=== PATIENT | female | born 1985 ===

== ENCOUNTER 2018-02-13 16:46 | Emergency (ER) | payer SELFPAY ==
[2018-02-13 16:51] VITALS: BMI 26.1
[2018-02-13] MEDS ORDERED: Albuterol-Ipratrop 3 mg / 0.5 (3 ml) UD IH STA ×2 (16:51→16:54)
[2018-02-13 17:03] VITALS: TEMP 98.4
--- NOTE | 2018-02-13 17:03 | ED PDOC ---
Arrival/HPI - General Chief Complaint: Shortness Of Breath Time Seen by Provider: 02/13/18 16:47 Historian: Patient - History of Present Illness Narrative History of Present Illness (Text): 02/13/18 16:55 32yr old female with hx of asthma presents today with asthma exacerbation today. pt states for the past 2 days she has been needing her inhaler more frequently and she left her inhaler with her friend, so today she became extremely short of breath with wheezing. pt denies fever/chills. no abdominal pain. no vomiting/diarrhea.pt denies any uri symptoms. pt states she just moved in with her boyfriend who has 3 cats. pt states that she is allergic to cats. pt states symptoms worsened just prior to arrival. no urinary symptoms. no other complaints. Time/Duration: Prior to Arrival Symptom Onset: Sudden Past Medical History - Provider Review Nursing Documentation Reviewed: Yes - Travel History Have you recently traveled outside [place] w/in the past 3 mons?: No - Pulmonary Hx Asthma: Yes - Psychiatric Hx Substance Use: No - Anesthesia Hx Anesthesia Reactions: No Hx Malignant Hyperthermia: No Family/Social History - Physician Review Nursing Documentation Reviewed: Yes Family/Social History: Unknown Family HX Smoking Status: Never Smoked Hx Alcohol Use: No Hx Substance Use: No Allergies/Home Meds Allergies/Adverse Reactions: Allergies magnesium Allergy (Verified 02/13/18 16:50) RASH Review of Systems - Review of Systems Constitutional: absent: Fatigue, Fevers Respiratory: SOB, Wheezing. absent: Cough Cardiovascular: absent: Chest Pain, Palpitations Gastrointestinal: absent: Abdominal Pain, Constipation, Diarrhea, Nausea, Vomiting Genitourinary Female: absent: Dysuria, Frequency, Hematuria Musculoskeletal: absent: Arthralgias, Back Pain, Neck Pain Skin: absent: Rash, Pruritis Neurological: absent: Headache, Dizziness Psychiatric: absent: Anxiety, Depression Physical Exam Vital Signs Reviewed: Yes Vital Signs Temp Pulse Resp BP Pulse Ox 02/13/18 17:10 20 02/13/18 16:46 98.4 F 110 H 24 140/76 97 Temperature: Afebrile Blood Pressure: Normal Pulse: Tachycardic Respiratory Rate: Tachypneic Appearance: Positive for: Well-Appearing, Non-Toxic, Comfortable Pain Distress: Mild Mental Status: Positive for: Alert and Oriented X 3 - Systems Exam Head: Present: Atraumatic Mouth: Present: Moist Mucous Membranes Neck: Present: Normal Range of Motion Respiratory/Chest: Present: Good Air Exchange, Wheezes, Retracting, Tachypneic. No: Clear to Auscultation, Rhonchi Cardiovascular: Present: Tachycardic. No: Murmurs Abdomen: No: Tenderness Lower Extremity: No: Edema Neurological: Present: GCS=15, Speech Normal Skin: Present: Warm, Dry, Normal Color. No: Rashes Psychiatric: Present: Alert, Oriented x 3 Medical Decision Making ED Course and Treatment: 02/13/18 17:05 32yr old female presents today with asthma exacerbation. pt is alert and oriented; speaking in short sentences. diffuse wheezing noted; slight retracting noted. pt given duoneb and solu medrol 125mg IV pt reassessment; pt feeling much better. still with slight wheezing 02/13/18 17:36 pt reassessment; pt feeling much better; lungs cta bilaterally. HR improved. i advised patient to take prednisone daily 4 days use nebulizer 3 times daily as needed and follow up with primary care physician and paraeducator within the next 2 days. Advised immediate return if symptoms worsen persist or if new concerning symptoms develop I advised patient of risks versus benefits taking steroids. Advised patient of risk of avascular necrosis, diabetes, glaucoma with continued use of steriods. Patient verbalizes understanding of discharge instructions and need for immediate followup. all aspects of this case were discussed the attending of record. impression; asthma exacerbation prednisone daily x 4 days use nebulizer 3 times daily as needed increase fluids follow up with the Primary care physician within the next 2 days Follow up with the Supervisor [employer] within the next 2 days return IMMEDIATELY if symptoms worsen,persist or if new symptoms develop. Reassessment Condition: Re-examined, Improved - Medication Orders Current Medication Orders: Discontinued Medications Albuterol/Ipratropium (Duoneb 3 Mg/0.5 Mg (3 Ml) Ud) 3 ml IH STAT STA Stop: 02/13/18 16:52 Last Admin: 02/13/18 17:00 Dose: 3 ml Albuterol/Ipratropium (Duoneb 3 Mg/0.5 Mg (3 Ml) Ud) 3 ml IH STAT STA Stop: 02/13/18 16:55 Last Admin: 02/13/18 17:36 Dose: Not Given Non-Admin Reason: Patient Refused Methylprednisolone (Solu-Medrol) 125 mg IVP STAT STA Stop: 02/13/18 16:52 Last Admin: 02/13/18 17:35 Dose: 125 mg IVP Administration Document 02/13/18 17:35 JORDON (Rec: 02/13/18 17:35 JORDON [id number]) Charges for Administration # of IVP Administrations 1 Disposition/Present on Arrival - Present on Arrival Any Indicators Present on Arrival: No History of DVT/PE: No History of Uncontrolled Diabetes: No Urinary Catheter: No History of Decub. Ulcer: No History Surgical Site Infection Following: None - Disposition Have Diagnosis and Disposition been Completed?: Yes Diagnosis: Asthma exacerbation Disposition: HOME/ ROUTINE Disposition Time: 17:41 Patient Plan: Discharge Condition: GOOD Discharge Instructions (ExitCare): Asthma, Adult (DC) Additional Instructions: prednisone daily x 4 days use nebulizer 3 times daily as needed increase fluids follow up with the Primary care physician within the next 2 days Follow up with the Super[facility] [employer] within the next 2 days return IMMEDIATELY if symptoms worsen,persist or if new symptoms develop. Prescriptions: Albuterol HFA [Ventolin HFA 90 mcg/actuation (8 g)] 2 puff IH [id number] PRN #1 inhaler PRN Reason: Cough Albuterol 0.083% [Albuterol 0.083% Inhal Dominique (2.5 mg/3 ml) UD] 1 vial IH TID PRN #1 packet PRN Reason: Cough predniSONE [predniSONE Tab] 3 tab PO DAILY #12 tab Referrals: Tate Nesbitt MD [Primary Care Provider] - Follow up with primary Manuel Grider MD [Staff Provider] - Follow up with primary Forms: [employer] (Citizen Of [place]), WORK NOTE
[2018-02-13 18:14] VITALS: BP 130/71; PULSE 90; RESP 17; O2SAT 96
== END 2018-02-13 18:13 | disposition home or self-care (01) ==
LOC: MERGE 16:46 → ED 16:46
DX: J45.901 Unspecified asthma with (acute) exacerbation (principal)
CPT/HCPCS: 96374; 99283; J2930

== ENCOUNTER 2018-09-18 20:08 | Emergency (ER) | payer SELFPAY ==
[2018-09-18 20:15] VITALS: BMI 23.9
[2018-09-18] MEDS ORDERED: Albuterol-Ipratrop 3 mg / 0.5 (3 ml) UD ONE (20:15)
[2018-09-18 20:24] VITALS: TEMP 98.2
[2018-09-18] MEDS ORDERED: Albuterol-Ipratrop 3 mg / 0.5 (3 ml) UD IH STA (20:24)
[2018-09-18 20:41] LABS: BASO # 0.06 K/mm3 (0.0-2.0); BASO % 0.6 % (0.0-3.0); EOS # 0.7 (0.0-0.7); EOS % 6.3 % (1.5-5.0); HEMOGLOBIN 12.8 g/dL (12.0-16.0); LYMPH # 2.6 (1.2-3.4); LYMPH % 24.1 % (22.0-35.0); MEAN CELL VOLUME 97.5 fl (80.0-105.0); MEAN CORPUSCULAR HEMOGLOBIN 32.1 pg (25.0-35.0); MEAN CORPUSCULAR HGB CONC 32.9 g/dl (31.0-37.0); MEAN PLATELET VOLUME 9.9 fl (7.0-11.0); MONO # 0.6 (0.1-0.6); MONO % 5.4 % (1.0-6.0); RBC 3.99 10^6/uL (3.5-6.1); WHITE BLOOD COUNT 10.8 10^3/uL (4.5-11.0)
[2018-09-18] MEDS ORDERED: Sodium Chloride 0.9% 1,000 ML IV STA (20:44)
[2018-09-18 20:47] LABS: INR 0.95; PARTIAL THROMBOPLASTIN TIME 32.7 Seconds (26.9-38.3); PROTHROMBIN TIME 10.5 SECONDS (9.4-12.5)
[2018-09-18 21:14] LABS: ALB/GLOB RATIO 1.2 (1.1-1.8); ALBUMIN 4.2 g/dL (3.0-4.8); ALT/SGPT 16 U/L (7-56); AST/SGOT 24 U/L (14-36); BLOOD UREA NITROGEN 15 mg/dL (7-21); CALCIUM 9.4 mg/dL (8.4-10.5); GFR NON-AFRICAN AMERICAN > 60
[2018-09-18 21:25] LABS: TROPONIN I < 0.01 ng/mL
[2018-09-18 21:47] VITALS: RESP 16
--- NOTE | 2018-09-18 21:47 | ED PDOC ---
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 She has been staying at her grandmother's house the last 2 days, who owns multiple cats that patient is allergic to. She has been using her inhaler persistently without relief. States this feels like her typical asthma exacerbations. Denies fever, chills, chest pain, nausea, vomiting, abdominal pain, dizziness, headache, vision changes, neck pain/stiffness, palpitations, calf swelling or pain, numbness, weakness, paresthesias, rash, or any other associated symptoms. Past Medical History - Provider Review Nursing Documentation Reviewed: Yes - Infectious Disease Hx of Infectious Diseases: None - Tetanus Immunization Tetanus Immunization: Unknown - Past Medical History Past Medical History: Unable to Obtain - Cardiac Hx Cardiac Disorders: No - Pulmonary Hx Asthma: Yes - Neurological Hx Neurological Disorder: No - HEENT Hx HEENT Disorder: No - Renal Hx Renal Disorder: No - Endocrine/Metabolic Hx Endocrine Disorders: No - Hematological/Oncological Hx Blood Disorders: No - Integumentary Hx Dermatological Disorder: No - Musculoskeletal/Rheumatological Hx Musculoskeletal Disorders: No - Gastrointestinal Hx Gastrointestinal Disorders: No - Genitourinary/Gynecological Other/Comment: RECENT ELECTIVE [id number] AGO. - Psychiatric Hx Depression: Yes Hx Substance Use: No (unknown) - Past Surgical History Past Surgical History: Unable to Obtain - Anesthesia Hx Anesthesia: No Hx Anesthesia Reactions: No Hx Malignant Hyperthermia: No - Suicidal Assessment Feels Threatened In Home Enviroment: No Family/Social History - Physician Review Nursing Documentation Reviewed: Yes Family/Social History: No Known Family HX Smoking Status: Never Smoked Hx Alcohol Use: Yes (unknown) Frequency of alcohol use: Socially Hx Substance Use: No (unknown) Hx Substance Use Treatment: No Allergies/Home Meds Allergies/Adverse Reactions: Allergies magnesium Allergy (Verified 02/13/18 16:50) RASH Review of Systems - Review of Systems Constitutional: Normal. absent: Fevers Eyes: Normal. absent: Vision Changes ENT: Normal. absent: Sore Throat, Sinus Congestion Respiratory: SOB, Cough, Wheezing. absent: Sputum Cardiovascular: Normal. absent: Chest Pain, Palpitations, Syncope Gastrointestinal: Normal. absent: Abdominal Pain, Nausea, Vomiting Genitourinary Female: Normal. absent: Dysuria, Frequency Musculoskeletal: Normal. absent: Back Pain, Neck Pain Skin: Normal. absent: Rash Neurological: Normal. absent: Headache, Dizziness Endocrine: Normal Hemo/Lymphatic: Normal Psychiatric: Normal Physical Exam Vital Signs Reviewed: Yes Vital Signs Temp Pulse Resp BP Pulse Ox 09/18/18 20:14 98.2 F 114 H 18 142/93 H 99 Temperature: Afebrile Blood Pressure: Hypertensive Pulse: Tachycardic Respiratory Rate: Normal Appearance: Positive for: Well-Appearing, Non-Toxic, Uncomfortable Pain Distress: None Mental Status: Positive for: Alert and Oriented X 3 - Systems Exam Head: Present: Atraumatic, Normocephalic Pupils: Present: PERRL Extroacular Muscles: Present: EOMI Conjunctiva: Present: Normal Ears: Present: Normal, NORMAL TM, Normal Canal. No: Erythema Mouth: Present: Moist Mucous Membranes Neck: Present: Normal Range of Motion. No: Meningeal Signs Respiratory/Chest: Present: Wheezes (expiratory, diffuse, bilaterally), Decreased Breath Sounds (bilaterally). No: Respiratory Distress, Accessory Muscle Use, Rales, Retracting, Rhonchi, Tachypneic Cardiovascular: Present: Normal S1, S2, Peripheal Pulses Present, Tachycardic Abdomen: No: Tenderness, Distention, Peritoneal Signs, Rebound, Guarding Back: Present: Normal Inspection. No: CVA Tenderness Upper Extremity: Present: Normal Inspection, Normal ROM, NORMAL PULSES, Neurovascularly Intact, Capillary Refill < 2s. No: Cyanosis, Edema, Temperature Abnormalties Lower Extremity: Present: Normal ROM Neurological: Present: GCS=15, CN II-XII Intact, Speech Normal, Motor Func Grossly Intact, Normal Sensory Function, Gait Normal Skin: Present: Warm, Dry, Normal Color. No: Rashes Psychiatric: Present: Alert, Oriented x 3, Normal Insight, Normal Concentration, Normal Affect, Normal Mood Medical Decision Making ED Course and Treatment: 09/18/18 21:38 Initial Plan: * POC preg * CBC, CMP * Coags * Troponin * EKG * Portable CXR Bloodwork reviewed, unremarkable EKG shows sinus tach at 106; Normal intervals; No STEMI or other signs of acute ischemia CXR shows no active disease as read by me, significant for scoliosis 21:54 On re-evaluation, patient is feeling much better. Lung exam has improved. Better air exchange appreciated, still with wheezing bilaterally. 22:45 After xopenex, patient's lung exam reveals only scant intermittent wheezing. Pt states she is back to baseline and is asking for discharge home. O2 sat wnl. Denies SOB. Will discharge home on prednisone and recommend PMD followup. Diagnostic testing results and plan of care discussed with patient. Strict instructions given regarding prescription use, importance of followup, and signs/symptoms to return to ER including chest pain, SOB, or any other new/worsening symptoms. Pt verbalized understanding of discussion. Patient is A&Ox3, ambulating with steady gait, with vital signs stable for discharge. - Lab Interpretations Lab Results: PT 10.5 SECONDS (9.4-12.5) 09/18/18 20:15 INR 0.95 09/18/18 20:15 APTT 32.7 Seconds (26.9-38.3) 09/18/18 20:15 Troponin I < 0.01 ng/mL 09/18/18 20:15 Total Bilirubin 0.2 mg/dL (0.2-1.3) 09/18/18 20:15 AST 24 U/L (14-36) 09/18/18 20:15 ALT 16 U/L (7-56) 09/18/18 20:15 Alkaline Phosphatase 61 U/L (38-126) 09/18/18 20:15 Total Protein 7.6 g/dL (5.8-8.3) 09/18/18 20:15 Albumin 4.2 g/dL (3.0-4.8) 09/18/18 20:15 Globulin 3.4 gm/dL 09/18/18 20:15 Albumin/Globulin Ratio 1.2 (1.1-1.8) 09/18/18 20:15 09/18/18 20:15 09/18/18 20:15 Lab Results 09/18/18 20:15: Sodium 143, Potassium 4.1, Chloride 109 H, Carbon Dioxide 25, Anion Gap 13, BUN 15, Creatinine 0.9, Est GFR ( Amer) > 60, Est GFR (Non- Af Amer) > 60, Random Glucose 83, Calcium 9.4, Magnesium 2.1, Total Bilirubin 0.2, AST 24, ALT 16, Alkaline Phosphatase 61, Troponin I < 0.01, Total Protein 7.6, Albumin 4.2, Globulin 3.4, Albumin/Globulin Ratio 1.2 09/18/18 20:15: PT 10.5, INR 0.95, APTT 32.7 09/18/18 20:15: WBC 10.8, RBC 3.99, Hgb 12.8, Hct 38.9, MCV 97.5, MCH 32.1, MCHC 32.9, RDW 13.0, Plt Count 400, MPV 9.9, Neut % (Auto) 63.6, Lymph % (Auto) 24.1, Hughes % (Auto) 5.4, Eos % (Auto) 6.3 H, Baso % (Auto) 0.6, Lymph # (Auto) 2.6, Hughes # (Auto) 0.6, Eos # (Auto) 0.7, Baso # (Auto) 0.06, Absolute Neuts (auto) 6.90 H I have reviewed the lab results: Yes Interpretation: All labs normal - RAD Interpretation Narrative RAD Interpretations (Text): 09/18/18 21:56 CXR: Scoliosis, no active pulmonary disease Radiology Orders: 09/18/18 20:25 CHEST PORTABLE [RAD] Stat Vessel Engineer: ED Physician - EKG Interpretation EKG Interpretation (Text): 09/18/18 21:56 Sinus tachycardia at 106; Normal intervals; No STEMI or other signs of ischemia Interpreted by ED Physician: Yes Type: 12 lead EKG - Medication Orders Current Medication Orders: Sodium Chloride (Sodium Chloride 0.9%) 1,000 mls @ 999 mls/hr IV .Q1H1M STA Stop: 09/18/18 21:44 Last Admin: 09/18/18 21:07 Dose: 999 mls/hr eMAR Start Stop Document 09/18/18 21:07 NEVAEH (Rec: 09/18/18 21:07 NEVAEH [id number]) Intravenous Solution Start Date 09/18/18 Start Time 21:07 Discontinued Medications Albuterol/Ipratropium (Duoneb 3 Mg/0.5 Mg (3 Ml) Ud) 3 ml IH STAT STA Stop: 09/18/18 20:25 Last Admin: 09/18/18 20:29 Dose: 3 ml Methylprednisolone (Solu-Medrol) 125 mg IVP STAT STA Stop: 09/18/18 20:25 Last Admin: 09/18/18 21:07 Dose: 125 mg IVP Administration Document 09/18/18 21:07 MA (Rec: 09/18/18 21:08 MA [id number]) Charges for Administration # of IVP Administrations 1 Disposition/Present on Arrival - Present on Arrival Any Indicators Present on Arrival: No History of DVT/PE: No History of Uncontrolled Diabetes: No Urinary Catheter: No History of Decub. Ulcer: No History Surgical Site Infection Following: None - Disposition Have Diagnosis and Disposition been Completed?: Yes Diagnosis: Asthma exacerbation Disposition: HOME/ ROUTINE Disposition Time: 22:55 Patient Plan: Discharge Condition: IMPROVED Discharge Instructions (ExitCare): Asthma, Adult (DC), Avoiding Asthma Triggers Additional Instructions: Prednisone 2 tabs daily for 4 days Inhaler every 6 hours as needed Followup with primary doctor within 2 days Return to ER with any new/worsening symptoms Prescriptions: Albuterol Sulfate [Ventolin Hfa] 2 puff IH Q6 #1 pump predniSONE [predniSONE Tab] 40 mg PO DAILY #8 tab Referrals: Sheri Dill MD [Medical Doctor] - [place] up with primary [facility] [place] - Follow up with primary Forms: [employer] (F[place]ish), WORK NOTE
[2018-09-18] MEDS ORDERED: Levalbuterol 1.25 MG/3 ML Inhal Soln UD IH STA ×2 (21:52→21:53)
[2018-09-18 22:42] VITALS: BP 126/81; PULSE 117; O2SAT 94
--- NOTE | 2018-09-19 10:53 | RAD ---
Date of service: 09/18/2018 HISTORY: SOB COMPARISON: 09/30/2012 TECHNIQUE: 1 view obtained. FINDINGS: LUNGS: No active pulmonary disease. PLEURA: No significant pleural effusion identified, no pneumothorax apparent. CARDIOVASCULAR: No aortic atherosclerotic calcification present. Normal cardiac size. No pulmonary vascular congestion. OSSEOUS STRUCTURES: Mild scoliosis convex to the right VISUALIZED UPPER ABDOMEN: Normal. OTHER FINDINGS: None. IMPRESSION: No active disease.
--- NOTE | 2018-09-19 17:38 | CARD ---
APPROVED REPORT Date of service: 09/18/2018 EKG Measurement Heart [id number] <Conclusion> Sinus tachycardia Otherwise normal ECG
== END 2018-09-18 22:57 | disposition home or self-care (01) ==
LOC: ED 20:08
DX: J45.901 Unspecified asthma with (acute) exacerbation (principal)
CPT/HCPCS: 71045; 80053; 81025; 83735; 84484; 85025; 85610; 85730; 93005; 96374; 99284; J2930; J7030

== ENCOUNTER 2018-09-28 05:01 | Observation (INO) | payer MEDICAID, OTHER ==
--- NOTE | 2018-09-28 05:35 | ED PDOC ---
Arrival/HPI - General Chief Complaint: Substance Abuse Time Seen by Provider: 09/28/18 05:14 Historian: Patient - History of Present Illness Narrative History of Present Illness (Text): 09/28/18 05:31 33 year old female, whose medical history includes asthma, presents to the emergency department for substance abuse. Patient states she was at a club at 23:00 yesterday, when she took what she thought was ecstasy. Patient states she doesn't believe it was, and she feels like she can't breath well. Patient informs that she feels her heart beating rapidly. Patient also informs of hot flashes. Patient informs she does not know the person who sold her the drug. Patient denies any fevers, chills, headache, dizziness, chest pain, cough, abdominal pain, nausea, vomiting, diarrhea, back pain, neck pain, or any other complaint. Time/Duration: 4-6 hours Symptom Course: Unchanged Activities at Onset: Significant Past Medical History - Provider Review Nursing Documentation Reviewed: Yes - Infectious Disease Hx of Infectious Diseases: None - Tetanus Immunization Tetanus Immunization: Unknown - Past Medical History Past Medical History: Unable to Obtain - Cardiac Hx Cardiac Disorders: No - Pulmonary Hx Asthma: Yes - Neurological Hx Neurological Disorder: No - HEENT Hx HEENT Disorder: No - Renal Hx Renal Disorder: No - Endocrine/Metabolic Hx Endocrine Disorders: No - Hematological/Oncological Hx Blood Disorders: No - Integumentary Hx Dermatological Disorder: No - Musculoskeletal/Rheumatological Hx Musculoskeletal Disorders: No - Gastrointestinal Hx Gastrointestinal Disorders: No - Genitourinary/Gynecological Other/Comment: RECENT ELECTIVE [id number] AGO. - Psychiatric Hx Depression: Yes Hx Substance Use: No (unknown) - Past Surgical History Past Surgical History: Unable to Obtain - Anesthesia Hx Anesthesia: No Hx Anesthesia Reactions: No Hx Malignant Hyperthermia: No - Suicidal Assessment Feels Threatened In Home Enviroment: No Family/Social History - Physician Review Nursing Documentation Reviewed: Yes Family/Social History: No Known Family HX Smoking Status: Never Smoked Hx Alcohol Use: Yes (unknown) Hx Substance Use: No (unknown) Hx Substance Use Treatment: No Allergies/Home Meds Allergies/Adverse Reactions: Allergies magnesium Allergy (Verified 09/28/18 05:08) RASH Review of Systems - Physician Review All systems were reviewed & negative as marked: Yes - Review of Systems Constitutional: absent: Fevers, Night Sweats Respiratory: SOB. absent: Cough Cardiovascular: Palpitations. absent: Chest Pain Gastrointestinal: absent: Abdominal Pain, Diarrhea, Nausea, Vomiting Musculoskeletal: absent: Back Pain, Neck Pain Neurological: absent: Headache, Dizziness Endocrine: Diaphoresis Physical Exam - Physical Exam Narrative Physical Exam (Text): 09/28/18 05:37 Gen: VS reviewed, alert, well developed, well nourished, nontoxic, mild distress, agitated. ENT: normal pharynx. Eye: EOMI, PERRL and dilated. Neck: no JVD, supple, no adenopathy. CV: rapid rate, regular rhythm, no rubs, no murmur, no gallops, S1, S2, pulses equal and strong. Pulm: no distress, clear to auscultation, no wheeze, no rhonchi, breath sounds equal, no rales. Abd: soft, nontender, no guarding, no rebound, no rigidity, normal bowel sounds. Ext: no edema. Skin: good color, no rash, no cyanosis. Psych: responds appropriately to questions, normal affect. Neuro: oriented x 3, CN2-12 intact grossly, motor intact, sensation intact. 09/28/18 05:50 Vital Signs Reviewed: Yes Vital Signs Temp Pulse Resp BP Pulse Ox 09/28/18 05:14 98.2 F 141 H 18 113/59 L 98 Temperature: Afebrile Blood Pressure: Normal Pulse: Tachycardic Respiratory Rate: Normal Appearance: Positive for: Well-Appearing, Non-Toxic, Comfortable Pain Distress: None Mental Status: Positive for: Alert and Oriented X 3 Medical Decision Making ED Course and Treatment: 09/28/18 05:48 Impression: 33 year old female presents for evaluation s/p drug use. Plan: -- EKG -- CMP, Drug screen, alcohol -- CBC -- Chest X-ray -- POC -- Reassess and disposition Prior Visits: Notes and results from previous visits were reviewed. Progress Notes: 09/28/18 05:48 09/28/18 07:[address] rdz - RAD Interpretation Narrative RAD Interpretations (Text): 09/28/18 06:34 cxr my read: no focal infiltrate, no ptx, no wide mediastinum Quality Engineer Medical Device: ED Physician - EKG Interpretation EKG Interpretation (Text): 09/28/18 06:33 ekg my read: sinus tachycardia at 133 bpm, nml qrs, nml axis, artifact, no acute sttw abn Interpreted by ED Physician: Yes - Scribe Statement The provider has reviewed the documentation as recorded by the Scribe Bayron Carr Provider Scribe Attestation: All medical record entries made by the Scribe were at my direction and personally dictated by me. I have reviewed the chart and agree that the record accurately reflects my personal performance of the history, physical exam, medical decision making, and the department course for this patient. I have also personally directed, reviewed, and agree with the discharge instructions and disposition. Disposition/Present on Arrival - Present on Arrival History of DVT/PE: No History of Uncontrolled Diabetes: No Urinary Catheter: No History of Decub. Ulcer: No History Surgical Site Infection Following: None - Disposition Forms: [employer] (Lao)
[2018-09-28] MEDS ORDERED: Sodium Chloride 0.9% 1,000 ML IV STA (05:43)
[2018-09-28 06:04] LABS: BASO # 0.08 K/mm3 (0.0-2.0); BASO % 0.4 % (0.0-3.0); EOS # 1.2 (0.0-0.7); EOS % 6.4 % (1.5-5.0); HEMOGLOBIN 13.9 g/dL (12.0-16.0); LYMPH # 2.7 (1.2-3.4); MEAN CELL VOLUME 95.3 fl (80.0-105.0); MEAN CORPUSCULAR HEMOGLOBIN 32.5 pg (25.0-35.0); MEAN CORPUSCULAR HGB CONC 34.1 g/dl (31.0-37.0); MEAN PLATELET VOLUME 9.7 fl (7.0-11.0); MONO # 1.6 (0.1-0.6); MONO % 8.5 % (1.0-6.0); RBC 4.28 10^6/uL (3.5-6.1); RED CELL DISTRIBUTION WIDTH 13.2 % (11.5-14.5); WHITE BLOOD COUNT 18.3 10^3/uL (4.5-11.0)
[2018-09-28 06:22] LABS: PHENCYCLIDINE, UR NEGATIVE (NEGATIVE)
[2018-09-28 07:08] LABS: ALB/GLOB RATIO 1.3 (1.1-1.8); ALBUMIN 4.2 g/dL (3.0-4.8); ALT/SGPT 10 U/L (7-56); AST/SGOT 22 U/L (14-36); BARBITURATES, UR NEGATIVE (NEGATIVE); BENZODIAZEPINES, UR NEGATIVE (NEGATIVE); BLOOD UREA NITROGEN 8 mg/dL (7-21); CALCIUM 9.5 mg/dL (8.4-10.5); GFR NON-AFRICAN AMERICAN > 60; OPIATES, UR NEGATIVE (NEGATIVE)
--- NOTE | 2018-09-28 07:51 | ED PDOC ---
Physical Exam Vital Signs Reviewed: Yes Vital Signs Temp Pulse Resp BP Pulse Ox 09/28/18 05:14 98.2 F 141 H 18 113/59 L 98 Temperature: Afebrile Blood Pressure: Normal Pulse: Tachycardic Respiratory Rate: Normal Appearance: Positive for: Well-Appearing, Non-Toxic, Comfortable Pain Distress: None Mental Status: Positive for: Alert and Oriented X 3 Medical Decision Making ED Course and Treatment: 09/28/18 07:51 Patient signed out to me by Dr. Moore. Patient pending Labs / Reassessment / Final Disposition 09/28/18 13:43 upon reasses, pt with oorsneing wheezing. neb steroids inaitaed. observed without improved. accpeted hospitalist. - Lab Interpretations Lab Results: Total Bilirubin 0.8 mg/dL (0.2-1.3) 09/28/18 05:57 AST 22 U/L (14-36) 09/28/18 05:57 ALT 10 U/L (7-56) 09/28/18 05:57 Alkaline Phosphatase 57 U/L (38-126) 09/28/18 05:57 Total Protein 7.6 g/dL (5.8-8.3) 09/28/18 05:57 Albumin 4.2 g/dL (3.0-4.8) 09/28/18 05:57 Globulin 3.4 gm/dL 09/28/18 05:57 Albumin/Globulin Ratio 1.3 (1.1-1.8) 09/28/18 05:57 - RAD Interpretation Narrative RAD Interpretations (Text): 09/28/18 08:30 Chest X-Ray shows: IMPRESSION: No active disease. Radiology Orders: 09/28/18 05:42 CHEST PORTABLE [RAD] Stat Set Up Mechanic: Radiologist - Medication Orders Current Medication Orders: Discontinued Medications Sodium Chloride (Sodium Chloride 0.9%) 1,000 mls @ 999 mls/hr IV .Q1H1M STA Stop: 09/28/18 06:43 Last Admin: 09/28/18 05:57 Dose: 999 mls/hr eMAR Start Stop Document 09/28/18 05:57 IT (Rec: 09/28/18 05:57 IT [id number]) Intravenous Solution Start Date 09/28/18 Start Time 05:57 Lorazepam (Ativan) 1 mg IVP ONCE ONE; Protocol Stop: 09/28/18 06:30 Last Admin: 09/28/18 06:42 Dose: 1 mg IVP Administration Document 09/28/18 06:42 IT (Rec: 09/28/18 06:42 IT [id number]) Charges for Administration # of IVP Administrations 1 Disposition/Present on Arrival - Present on Arrival Any Indicators Present on Arrival: No History of DVT/PE: No History of Uncontrolled Diabetes: No Urinary Catheter: No History of Decub. Ulcer: No History Surgical Site Infection Following: None - Disposition Have Diagnosis and Disposition been Completed?: Yes Diagnosis: Asthma, Overdose Disposition: HOSPITALIZED Disposition Time: 12:00 Condition: FAIR
--- NOTE | 2018-09-28 08:34 | RAD ---
Date of service: 09/28/2018 HISTORY: chest pain COMPARISON: 09/18/2018 TECHNIQUE: 1 view obtained. FINDINGS: LUNGS: No active pulmonary disease. PLEURA: No significant pleural effusion identified, no pneumothorax apparent. CARDIOVASCULAR: No aortic atherosclerotic calcification present. Normal cardiac size. No pulmonary vascular congestion. OSSEOUS STRUCTURES: No significant abnormalities. VISUALIZED UPPER ABDOMEN: Normal. OTHER FINDINGS: None. IMPRESSION: No active disease.
[2018-09-28] MEDS ORDERED: Albuterol-Ipratrop 3 mg / 0.5 (3 ml) UD IH STA ×2 (09:30)
--- NOTE | 2018-09-28 10:38 | CARD ---
APPROVED REPORT Date of service: 09/28/2018 EKG Measurement Heart [id number] <Conclusion> Sinus tachycardia Baseline artifact Rightward axis Borderline ECG
[2018-09-28] MEDS ORDERED: Levalbuterol 0.63 MG/3 ML Inhal Soln UD IH PRN (12:12)
[2018-09-28] MEDS ORDERED: Sodium Chloride 0.9% 1,000 ML IV SCH (12:15)
--- NOTE | 2018-09-28 12:20 | CP.PCM.HP ---
<MarcellYfn - Last Filed: 09/28/18 18:41> History of Present Illness - History of Present Illness History of Present Illness: Yfn Faith, PGY1 Medicine H&P Note for Dr. Vasquez: CC: SOB, palpitations, and Anxiety Pt is a 33 yo F with pmhx of Asthma requiring 2 intubations (last over 10 years ago) and anxiety who presents to the [facility] ER for SOB, palpitations and anxiety. Pt states that last night she was at a club celebrating her friends birthday when she took a pill of what she thought was ecstasy. Pt states that after taking the pill she was fine and had no adverse events. She states that though this AM she noticed that she was having some difficulty breathing. She states that she then began to become anxious due to her SOB and then decided to call the ambulance to take her to the ED. She states that in the ED she received a duoneb treatment which did not help alleviate the SOB. She states that at the time of exam she is feeling better and states that her SOB and anxiety have improved. Pt at this time also denies any fevers, chills, headache, lightheadedness, dizziness, weakness, chest pain, palpitations, abd pain, n/v, c/d or dysuria. Pmhx: Asthma requiring 2 intubations (last over 10 years ago) and anxiety Pshx: Denies Meds: Albuterol All: Mag - hives Soc: Denies any tobacco hx, admits to social drinking (Wine on weekends), denies any illicit drug use Fam Hx; Dad: Leukemia, Mom: CAD Present on Admission - Present on Admission Any Indicators Present on Admission: No Review of Systems - Review of Systems Review of Systems: 12 point ROS reviewed and negative except for noted in HPI above. Past Patient History - Infectious Disease Hx of Infectious Diseases: None - Tetanus Immunizations Tetanus Immunization: Unknown - Past Social History Smoking Status: Never Smoked - CARDIAC Hx Cardiac Disorders: No - PULMONARY Hx Asthma: Yes - NEUROLOGICAL Hx Neurological Disorder: No - HEENT Hx HEENT Problems: No - RENAL Hx Chronic Kidney Disease: No - ENDOCRINE/METABOLIC Hx Endocrine Disorders: No - HEMATOLOGICAL/ONCOLOGICAL Hx Blood Disorders: No - INTEGUMENTARY Hx Dermatological Problems: No - MUSCULOSKELETAL/RHEUMATOLOGICAL Hx Musculoskeletal Disorders: No - GASTROINTESTINAL Hx Gastrointestinal Disorders: No - GENITOURINARY/GYNECOLOGICAL Other/Comment: RECENT ELECTIVE [id number] AGO. - PSYCHIATRIC Hx Depression: Yes Hx Substance Use: No (unknown) - ANESTHESIA Hx Anesthesia: No Hx Anesthesia Reactions: No Hx Malignant Hyperthermia: No Meds Allergies/Adverse Reactions: Allergies Allergy/AdvReac Type Severity Reaction Status Date / Time magnesium Allergy RASH Verified 09/28/18 12:44 Physical Exam - Constitutional Appears: Well, Non-toxic, No Acute Distress - Head Exam Head Exam: ATRAUMATIC, NORMAL INSPECTION, NORMOCEPHALIC - Eye Exam Eye Exam: EOMI, Normal appearance, PERRL - Respiratory Exam Respiratory Exam: Clear to Auscultation Bilateral, NORMAL BREATHING PATTERN. absent: Accessory Muscle Use, Decreased Breath Sounds, Rales, Rhonchi, Wheezes, Respiratory Distress, Stridor - Cardiovascular Exam Cardiovascular Exam: Tachycardia, +S1, +S2. absent: Gallop, Rubs - GI/Abdominal Exam GI & Abdominal Exam: Normal Bowel Sounds, Soft. absent: Distended, Firm, Guardi ng, Rigid, Tenderness - Extremities Exam Extremities exam: Positive for: normal capillary refill, normal inspection, pedal pulses present. Negative for: pedal edema, tenderness - Back Exam Back exam: NORMAL INSPECTION. absent: CVA tenderness (L), CVA tenderness (R) - Neurological Exam Neurological exam: Alert, Oriented x3 - Psychiatric Exam Psychiatric exam: Normal Affect, Normal Mood - Skin Skin Exam: Dry, Normal Color, Warm Results - Vital Signs Recent Vital Signs: Last Vital Signs Temp 98.2 F 09/28/18 05:14 Pulse 120 H 09/28/18 11:41 Resp 20 09/28/18 11:41 BP 129/73 09/28/18 11:41 Pulse Ox 98 09/28/18 11:41 - Labs Result Diagrams: 09/28/18 15:45 09/28/18 05:57 Labs: Laboratory Results - last 24 hr 09/28/18 09/28/18 09/28/18 05:57 05:57 05:57 WBC 18.3 H D RBC 4.28 Hgb 13.9 Hct 40.8 MCV 95.3 MCH 32.5 MCHC 34.1 RDW 13.2 Plt Count 456 H MPV 9.7 Neut % (Auto) 69.7 H Lymph % (Auto) 15.0 L [place] % (Auto) 8.5 H Eos % (Auto) 6.4 H Baso % (Auto) 0.4 Lymph # (Auto) 2.7 [place] # (Auto) 1.6 H Eos # (Auto) 1.2 H Baso # (Auto) 0.08 Absolute Neuts (auto) 12.77 H Sodium 138 Potassium 3.7 Chloride 101 Carbon Dioxide 25 Anion Gap 16 BUN 8 Creatinine 0.7 Est GFR ( Amer) > 60 Est GFR (Non-Af Amer) > 60 Random Glucose 96 Calcium 9.5 Total Bilirubin 0.8 AST 22 ALT 10 Alkaline Phosphatase 57 Total Protein 7.6 Albumin 4.2 Globulin 3.4 Albumin/Globulin Ratio 1.3 Urine Opiates Screen Negative Urine Methadone Screen Negative Ur Barbiturates Screen Negative Ur Phencyclidine Scrn Negative Ur Amphetamines Screen Positive H U Benzodiazepines Scrn Negative U Oth Cocaine Metabols Negative U Cannabinoids Screen Negative Alcohol, Quantitative 09/28/18 05:57 WBC RBC Hgb Hct MCV MCH MCHC RDW Plt Count MPV Neut % (Auto) Lymph % (Auto) [place] % (Auto) Eos % (Auto) Baso % (Auto) Lymph # (Auto) [place] # (Auto) Eos # (Auto) Baso # (Auto) Absolute Neuts (auto) Sodium Potassium Chloride Carbon Dioxide Anion Gap BUN Creatinine Est GFR ( Amer) Est GFR (Non-Af Amer) Random Glucose Calcium Total Bilirubin AST ALT Alkaline Phosphatase Total Protein Albumin Globulin Albumin/Globulin Ratio Urine Opiates Screen Urine Methadone Screen Ur Barbiturates Screen Ur Phencyclidine Scrn Ur Amphetamines Screen U Benzodiazepines Scrn U Oth Cocaine Metabols U Cannabinoids Screen Alcohol, Quantitative < 10 Assessment & Plan - Assessment and Plan (Free Text) Assessment: Pt is a 33 yo F with pmhx of Asthma requiring 2 intubations (last over 10 years ago) and anxiety who presents to the [facility] ER for SOB, palpitations and anxiety. Plan: Asthma exacerbation vs anxiety vs drug effects: - CXR: No active disease - Pt was given duoneb treatment in ED, no wheezing noted on exam - Pt also given ativan in ED and is noted to be feeling better - IVF - NS @ 100/hr - Xopenex q4 PRN - Utox: + for amphetamines - Pt informed to refrain from taking any recreational drugs - Cont to monitor Palpitations likely 2/2 drug effect vs anxiety - Will continue to monitor - Electrolytes wnl PPx: SCDs Case seen and discussed with Dr. Christina Faith, PGY-1 <Yinka Vasquez - Last Filed: 09/29/18 08:27> Results - Vital Signs Recent Vital Signs: Last Vital Signs Temp 98.4 F 09/28/18 18:00 Pulse 126 H 09/28/18 18:00 Resp 22 09/28/18 18:00 BP 120/79 09/28/18 18:00 Pulse Ox 96 09/28/18 12:35 - Labs Result Diagrams: 09/28/18 15:45 09/28/18 05:57 Labs: Laboratory Results - last 24 hr 09/28/18 15:45 WBC 7.7 D RBC 3.91 Hgb 12.6 Hct 37.4 MCV 95.7 MCH 32.2 MCHC 33.7 RDW 13.5 Plt Count 358 MPV 9.5 Neut % (Auto) 94.0 H Lymph % (Auto) 5.1 L [place] % (Auto) 0.5 L Eos % (Auto) 0.3 L Baso % (Auto) 0.1 Lymph # (Auto) 0.4 L [place] # (Auto) 0.0 L Eos # (Auto) 0.0 Baso # (Auto) 0.01 Absolute Neuts (auto) 7.20 H Neutrophils % (Manual) 93 H Lymphocytes % (Manual) 5 L Monocytes % (Manual) 2 Toxic Granulation 2+ Platelet Evaluation Normal Hypochromasia 1+ Rouleaux 2+ Attending/Attestation - Attestation I have personally seen and examined this patient.: Yes I have fully participated in the care of the patient.: Yes I have reviewed all pertinent clinical information: Yes Notes (Text): Patient seen and examined with the residents, agree with above Noted to have done MDMA the night prior to her admission which resulted in asthma exacerbation approximately 5 hours after taking the "pill" Patient was administered IV Solumedrol in the ER. At the time of hospitalist evaluation, patient was in no respiratory distress. No wheezing noted on pulmonary exam. AOx3. Patient requesting to be discharged. Educated on cessation of any recreational / illicit drug use.
[2018-09-28 12:38] VITALS: O2SAT 96
[2018-09-28 15:26] VITALS: BMI 25.7
[2018-09-28] MEDS ORDERED: Pneumococcal 23-Valent Vaccine IM ONE (15:26)
[2018-09-28] MEDS ORDERED: Influenza Vaccine 60 mcg/0.5 mL SYR (4YR UP) IM ONE (15:26)
[2018-09-28 15:49] LABS: BASO # 0.01 K/mm3 (0.0-2.0); BASO % 0.1 % (0.0-3.0); EOS % 0.3 % (1.5-5.0); HEMOGLOBIN 12.6 g/dL (12.0-16.0); LYMPH # 0.4 (1.2-3.4); LYMPH % 5.1 % (22.0-35.0); MEAN CELL VOLUME 95.7 fl (80.0-105.0); MEAN CORPUSCULAR HEMOGLOBIN 32.2 pg (25.0-35.0); MEAN CORPUSCULAR HGB CONC 33.7 g/dl (31.0-37.0); MEAN PLATELET VOLUME 9.5 fl (7.0-11.0); MONO % 0.5 % (1.0-6.0); PLATELET COUNT 358 10^3/uL (120.0-450.0); RBC 3.91 10^6/uL (3.5-6.1); RED CELL DISTRIBUTION WIDTH 13.5 % (11.5-14.5); WHITE BLOOD COUNT 7.7 10^3/uL (4.5-11.0)
[2018-09-28 18:28] VITALS: BP 120/79; PULSE 126; RESP 22; TEMP 98.4
[2018-09-28 20:01] LABS: HYPOCHROMIA 1+; LYMPHOCYTE 5 % (22.0-35.0); MONOCYTE 2 % (1.0-6.0); NEUTROPHIL 93 % (50.0-70.0); PLATELET ESTIMATE NORMAL (NORMAL)
[2018-09-28 20:02] LABS: ROULEAU 2+; TOXIC GRANULATION 2+
== END 2018-09-28 18:35 | disposition home or self-care (01) ==
LOC: ED 05:01 → ERH 11:00 → 2RNO 13:01
PROVIDERS: ADMIT Hospitalist; ATTEND Hospitalist
DX: F19.10 Other psychoactive substance abuse, uncomplicated (principal); F41.9 Anxiety disorder, unspecified; R00.2 Palpitations; J45.909 Unspecified asthma, uncomplicated; Z88.8 Allergy status to other drugs, medicaments and biological substances; Z80.6 Family history of leukemia; Z82.49 Family history of ischemic heart disease and other diseases of the circulatory system
CPT/HCPCS: 36415; 71045; 80053; 81025; 85025; 93005; 96374; 96375; 96376; 99285; G0378; G0480; J2060; J2930; J7030

== ENCOUNTER 2018-10-03 00:40 | Emergency (ER) | payer MEDICAID, OTHER ==
[2018-10-03 00:40] VITALS: BMI 25.7
--- NOTE | 2018-10-03 01:01 | ED PDOC ---
Arrival/HPI - General Time Seen by Provider: 10/03/18 00:41 Historian: Patient - History of Present Illness Narrative History of Present Illness (Text): 10/03/18 00:57 Seema Casiano is a 33 year old female, whose past medical history includes asthma and anxiety, who presents to the Emergency department complaining of shortness of breath tonight. Patient also reports feeling anxious, which she believes may be related to the ecstasy she took a few days prior. Patient denies any fever, chills, chest pain, abdominal pain, nausea, vomiting, diarrhea, urinary symptoms, back pain, neck pain, headache, dizziness, or any other complaints. Symptom Onset: Gradual Symptom Course: Unchanged Activities at Onset: Light Context: Home Past Medical History - Provider Review Nursing Documentation Reviewed: Yes - Infectious Disease Hx of Infectious Diseases: None - Tetanus Immunization Tetanus Immunization: Unknown - Past Medical History Past Medical History: Unable to Obtain - Cardiac Hx Cardiac Disorders: No - Pulmonary Hx Asthma: Yes - Neurological Hx Neurological Disorder: No - HEENT Hx HEENT Disorder: No - Renal Hx Renal Disorder: No - Endocrine/Metabolic Hx Endocrine Disorders: No - Hematological/Oncological Hx Blood Disorders: No - Integumentary Hx Dermatological Disorder: No - Musculoskeletal/Rheumatological Hx Musculoskeletal Disorders: No - Gastrointestinal Hx Gastrointestinal Disorders: No - Genitourinary/Gynecological Other/Comment: RECENT ELECTIVE [id number] AGO. - Psychiatric Hx Depression: Yes Hx Substance Use: No (unknown) - Past Surgical History Past Surgical History: Unable to Obtain - Anesthesia Hx Anesthesia: No Hx Anesthesia Reactions: No Hx Malignant Hyperthermia: No - Suicidal Assessment Feels Threatened In Home Enviroment: No Family/Social History - Physician Review Nursing Documentation Reviewed: Yes Family/Social History: Unknown Family HX Smoking Status: Never Smoked Hx Alcohol Use: No Hx Substance Use: No (unknown) Hx Substance Use Treatment: No Allergies/Home Meds Allergies/Adverse Reactions: Allergies magnesium Allergy (Verified 10/03/18 00:43) RASH Home Medications: Home Meds Medication Instructions Recorded Confirmed Azithromycin [Zithromax] 250 mg PO DAILY 10/03/18 10/03/18 Prednisone [Deltasone] 20 mg PO BID 10/03/18 10/03/18 Review of Systems - Physician Review All systems were reviewed & negative as marked: Yes - Review of Systems Constitutional: Normal. absent: Fevers Eyes: Normal ENT: Normal Respiratory: SOB. absent: Cough Cardiovascular: Normal. absent: Chest Pain Gastrointestinal: Normal. absent: Abdominal Pain, Diarrhea, Nausea, Vomiting Genitourinary Female: Normal. absent: Dysuria, Frequency, Hematuria, Urine Output Changes Musculoskeletal: Normal. absent: Back Pain, Neck Pain Skin: Normal. absent: Rash Neurological: Normal. absent: Headache, Dizziness Endocrine: Normal Hemo/Lymphatic: Normal Psychiatric: Anxiety Physical Exam Vital Signs Reviewed: Yes Temperature: Afebrile Blood Pressure: Normal Pulse: Regular Respiratory Rate: Normal Appearance: Positive for: Well-Appearing, Non-Toxic, Comfortable Pain Distress: None Mental Status: Positive for: Alert and Oriented X 3 - Systems Exam Head: Present: Atraumatic, Normocephalic Pupils: Present: PERRL Extroacular Muscles: Present: EOMI Conjunctiva: Present: Normal Mouth: Present: Moist Mucous Membranes Neck: Present: Normal Range of Motion Respiratory/Chest: Present: Wheezes. No: Respiratory Distress, Accessory Muscle Use Cardiovascular: Present: Regular Rate and Rhythm, Normal S1, S2. No: Murmurs Abdomen: No: Tenderness, Distention, Peritoneal Signs Back: Present: Normal Inspection Upper Extremity: Present: Normal Inspection. No: Cyanosis, Edema Lower Extremity: Present: Normal Inspection. No: Edema Neurological: Present: GCS=15, CN II-XII Intact, Speech Normal Skin: Present: Warm, Dry, Normal Color. No: Rashes Psychiatric: Present: Alert, Oriented x 3, Normal Insight, Normal Concentration Medical Decision Making ED Course and Treatment: 10/03/18 00:57 Impression: 33 year old female complaining of shortness of breath and anxiety. Plan: -- EKG -- Labs, cardiac enzymes, BNP, D-dimer -- Duoneb -- Solu-medrol -- Reassess and disposition Prior Visits: Notes and results from previous visits were reviewed. Progress Notes: Reviewed EKG, sinus tachycardia at 124 bpm. Rightward axis. Non-specific ST/T wave changes. - Medication Orders Current Medication Orders: Albuterol/Ipratropium (Duoneb 3 Mg/0.5 Mg (3 Ml) Ud) 3 ml IH Q15M BEKA Methylprednisolone (Solu-Medrol) 125 mg IVP ONCE ONE Stop: 10/03/18 00:55 - Scribe Statement The provider has reviewed the documentation as recorded by the Scribafua Gloria All medical record entries made by the Scribe were at my direction and personally dictated by me. I have reviewed the chart and agree that the record accurately reflects my personal performance of the history, physical exam, medical decision making, and the department course for this patient. I have also personally directed, reviewed, and agree with the discharge instructions and disposition. Disposition/Present on Arrival - Present on Arrival Any Indicators Present on Arrival: No History of DVT/PE: No History of Uncontrolled Diabetes: No Urinary Catheter: No History Surgical Site Infection Following: None - Disposition Have Diagnosis and Disposition been Completed?: Yes Diagnosis: Asthma, Anxiety Disposition: HOME/ ROUTINE Disposition Time: 03:10 Condition: IMPROVED Discharge Instructions (ExitCare): Asthma in Adults, Anxiety, Adult (DC) [facility]: [facility]
[2018-10-03 01:04] VITALS: RESP 20
[2018-10-03] MEDS ORDERED: Albuterol-Ipratrop 3 mg / 0.5 (3 ml) UD ONE (01:09)
[2018-10-03] MEDS: Albuterol-Ipratrop 3 mg / 0.5 (3 ml) UD IH SCH ×3 (01:10→01:37)
[2018-10-03 01:35] LABS: BASO # 0.01 K/mm3 (0.0-2.0); BASO % 0.1 % (0.0-3.0); EOS % 0.1 % (1.5-5.0); HEMOGLOBIN 13.3 g/dL (12.0-16.0); LYMPH # 0.7 (1.2-3.4); LYMPH % 4.6 % (22.0-35.0); MEAN CELL VOLUME 97.6 fl (80.0-105.0); MEAN CORPUSCULAR HEMOGLOBIN 31.7 pg (25.0-35.0); MEAN CORPUSCULAR HGB CONC 32.5 g/dl (31.0-37.0); MEAN PLATELET VOLUME 10.1 fl (7.0-11.0); MONO # 0.2 (0.1-0.6); MONO % 1.2 % (1.0-6.0); PLATELET COUNT 364 10^3/uL (120.0-450.0); RBC 4.19 10^6/uL (3.5-6.1); RED CELL DISTRIBUTION WIDTH 13.6 % (11.5-14.5); WHITE BLOOD COUNT 15.3 10^3/uL (4.5-11.0)
[2018-10-03 01:58] LABS: B-TYPE NATRIURETIC PEPTIDE 25.8 pg/mL (0-450); TROPONIN I < 0.01 ng/mL
[2018-10-03 02:10] LABS: ALB/GLOB RATIO 1.3 (1.1-1.8); ALT/SGPT < 6 U/L (7-56); AST/SGOT 19 U/L (14-36); BLOOD UREA NITROGEN 9 mg/dL (7-21); CALCIUM 9.3 mg/dL (8.4-10.5); GFR NON-AFRICAN AMERICAN > 60
[2018-10-03 03:14] LABS: BAND 2 % (0-2); EOSINOPHIL 1 % (0.0-3.0); LYMPHOCYTE 3 % (22.0-35.0); MONOCYTE 1 % (1.0-6.0); NEUTROPHIL 93 % (50.0-70.0)
[2018-10-03 04:59] VITALS: BP 150/62; PULSE 90; TEMP 98.2; O2SAT 100
--- NOTE | 2018-10-03 14:08 | RAD ---
Date of service: 10/03/2018 HISTORY: SOB COMPARISON: Comparison chest 09/28/2018 TECHNIQUE: 1 view obtained. FINDINGS: LUNGS: No active pulmonary disease. PLEURA: No significant pleural effusion identified, no pneumothorax apparent. CARDIOVASCULAR: No aortic atherosclerotic calcification present. Normal cardiac size. No pulmonary vascular congestion. OSSEOUS STRUCTURES: There is a moderate scoliosis of the thoracic spine centered at approximately the T10-T11 level. VISUALIZED UPPER ABDOMEN: Normal. OTHER FINDINGS: None. IMPRESSION: No active disease.
--- NOTE | 2018-10-04 07:17 | CARD ---
APPROVED REPORT Date of service: 10/03/2018 EKG Measurement Heart [id number] <Conclusion> Sinus tachycardia Rightward axis Cannot rule out Anterior infarct, age undetermined Abnormal ECG
== END 2018-10-03 03:10 | disposition home or self-care (01) ==
LOC: ED 00:40
DX: J45.909 Unspecified asthma, uncomplicated (principal); F41.9 Anxiety disorder, unspecified
CPT/HCPCS: 71045; 80053; 81025; 82550; 83615; 83735; 83880; 84484; 85025; 85378; 93005; 96374; 99283; J2930